=== PATIENT | female | born 1935 | race Caucasian/White ===

== ENCOUNTER 2018-03-11 10:11 | Inpatient (IN) | payer OTHER ==
--- NOTE | 2018-03-11 10:55 | RAD REPORT ---
EXAM DESCRIPTION: CT - Head Brain Wo Cont - 03/11/2018 10:48 am CLINICAL HISTORY: Transient alteration of awareness, possible sepsis, altered mental status COMPARISON: None. TECHNIQUE: Axial 5 mm thick images of the head were obtained without IV contrast. All CT scans are performed using dose optimization technique as appropriate and may include automated exposure control or mA/KV adjustment according to patient size. FINDINGS: No intracranial hemorrhage, mass, edema or shift of mid-line structures. No cortical edema or sulcal effacement. Patient has advanced atrophy and chronic ischemic change. Ventricles are in pr oportion to volume loss. Old infarction changes are present in the deep periventricular white matter of the anterior right frontal lobe and posterior left frontal lobe. Brainstem chronic ischemic change s are present. Atrophy involves the cerebellum as well. Arterial and physiologic calcifications are p resent. Mastoid air cells are clear. Patchy mucosal thickening in the frontal sinus and anterior ethmoid air cells. No acute bony findings. IMPRESSION: No hemorrhage, mass or acute intracranial finding identifiable. Advanced atrophy and chronic ischemic change. Ventricles are in proportion. Chronic ischemic changes can mask nonhemorrhagic acute infarction. MR brain followup can be obtained if there is ongoing concern for acute ischemia.
[2018-03-11 11:00] LABS: Absolute Lymphocytes (CBC) 0.9 K/uL (0.7-4.9); Absolute Neutrophil 10.8 K/uL (1.8-8.0); Basophils % 0.1 % (0-1.3); Hematocrit 46.1 % (36.0-45.0); Lymphocytes % 6.7 % (15.3-44.8); MCH 32.6 pg (27.0-35.0); MCV 99.4 fL (80-100); MPV 10.4 fL (7.6-11.3); Monocytes % 8.2 % (3.3-12.3); RBC Red Blood Cell Count 4.64 M/uL (3.86-4.86)
--- NOTE | 2018-03-11 11:02 | RAD REPORT ---
EXAM DESCRIPTION: RAD - Chest Single View - 03/11/2018 10:54 am CLINICAL HISTORY: Transient alteration of awareness, decreased consciousness, shortness of breath COMPARISON: February 2016 TECHNIQUE: AP portable chest image was obtained and 1042 hours . FINDINGS: Lung volumes are low. Fibrotic lung changes are present not clearly different when adjusti ng for shallow inspiration. No pulmonary edema, failure or volume overload findings. No peripheral co nsolidation or mass. Widening of the right side mediastinum and fullness of the right hilum OR artifa cts of shallow inspiration and rotation. True change to the mediastinum is unlikely. Heart and vascul ature are normal. No measurable pleural effusion and no pneumothorax. No acute bony abnormality seen. No acute aortic findings suspected. IMPRESSION: Chronic interstitial lung disease with no acute cardiopulmonary finding. No significant change from February 2016.
[2018-03-11 11:09] LABS: Protime INR 1.04
[2018-03-11] MEDS ORDERED: NA CHLORIDE 0.9% 1,000 ML ONE ×2 (11:09→11:52)
[2018-03-11 11:20] LABS: Albumin 2.7 g/dL (3.4-5.0); Bilirubin Direct 0.4 mg/dL (0-0.2); Bilirubin Total 0.8 mg/dL (0.2-1.0); Potassium 4.5 mmol/L (3.5-5.1); Troponin (Emerg Dept Use Only) 0.03 ng/mL (0.0-0.045)
[2018-03-11] MEDS ORDERED: NALOXONE 0.4 MG/ML VIAL ONE (11:52)
[2018-03-11] MEDS ORDERED: CEFEPIME 1 GM/100 ML BAG IV ONE (11:52)
--- NOTE | 2018-03-11 11:59 | ER ---
Nurse's Notes [facility] Name: Concepción Georges Age: 82 yrs Sex: Female : 1935 Arrival Date: 03/11/2018 Time: 10:16 Bed 4 Private MD: Devin Machado Diagnosis: Severe sepsis with septic shock Presentation: 03/11 10:43 Presenting complaint: EMS states: Pt responsive to tactile stimuli only, NH staff sg reports pt to be normally aa\T\ox3 but starting sometime yesterday she was aa\T\ox1, not wanting to eat or drink beginning yesterday as well, NH staff reports green sputum in mouth, but unable to assess lung cuenca d/t pt inability to deep breath, EMS reports hypotensive in route with BP's 51/30's, unable to obtain IV access reports FSBG of 190, pt room air saturation of 92 percent and placed to FL at 2 lpm with an increase in o2 saturation to 96%. Transition of care: patient was received from another setting of care (long-term care facility), [facility]. Onset of symptoms was March 10, 2018. Risk Assessment: Do you want to hurt yourself or someone else? Unable to obtain. Initial Sepsis Screen: Does the patient meet any 2 criteria? Altered Mental Status. HR > 90 bpm. Yes Does the patient have a suspected source of infection? Yes: Productive cough/pneumonia Other: per NH staff. Care prior to arrival: Glucose check: 190. 10:43 Acuity: LULY 2 sg 10:43 Method Of Arrival: EMS: [facility] sg Historical: - Allergies: 10:51 Codeine; sg 10:51 Demerol; sg 10:51 Paxil; sg 10:51 Sulfa (Sulfonamide Antibiotics); sg - Home Meds: 11:38 tramadol 50 mg Oral tab 1 tab every 6 hours [Active]; sg 12:53 acetaminophen 325 mg Oral tab 2 tabs every 6 hours [Active]; amlodipine 5 mg tab 1 tab sg once daily [Active]; atorvastatin 20 mg oral tab 1 tab once daily [Active]; cholecalciferol (vitamin D3) 1,000 unit oral tab twice a day [Active]; clopidogrel 75 mg oral tab 1 tab once daily [Active]; Cymbalta 60 mg oral cpDR 1 cap once daily [Active]; Depakote 125 mg Oral TbEC 1 tab 2 times per day [Active]; docusate sodium 100 mg Oral cap 1 cap once daily [Active]; donepezil 23 mg oral tab 1 tab once daily [Active]; Dulcolax (bisacodyl) 5 mg Oral TbEC [Active]; famotidine 20 mg Oral tab 1 tab once daily [Active]; ibuprofen 200 mg Oral cap [Active]; loperamide 2 mg Oral tab twice a day [Active]; meclizine 25 mg Oral tab 1 tab [Active]; melatonin 3 mg Oral tab daily [Active]; memantine 10 mg oral tab 1 tab 2 times per day [Active]; mirtazapine 15 mg Oral tab 1 tab once daily [Active]; Myrbetriq 25 mg oral Tb24 1 tab once daily [Active]; senna 8.6 mg oral tab once daily [Active]; - PMHx: 10:51 Dementia; Depression; Hyperlipidemia; Hypertension; CVA; Ischemic; sg - PSHx: 10:51 Cardiac stent placement; sg - Immunization history:: Adult Immunizations unknown. - Social history:: Smoking status: unknown The patient [facility] in a [facility]. - Ebola Screening: : Unable to complete screening because patient does not understand. Screenin:25 Abuse screen: Denies threats or abuse. Denies injuries from another. Nutritional sg screening: No deficits noted. Tuberculosis screening: No symptoms or risk factors identified. Never had TB. Fall Risk None identified. Assessment: 10:25 General: Appears ill, slender, well groomed, well developed, well nourished, Behavior sg is listless, quiet. Pain: Unable to use pain scale. Patient is disoriented. Does not appear to understand pain scale. pt non verbal at this time, but will make an audible noise with her mouth to tactile stimuli. Neuro: Level of Consciousness is confused, lethargic, unresponsive, Oriented to none Facial symmetry appears normal, Pupils are sluggish, pinpoint. Cardiovascular: Heart tones S1 S2 present Capillary refill is sluggish in bilateral fingers toes. Respiratory: Airway is patent Respiratory effort is even, shallow, Respiratory pattern is tachypnea Breath sounds are diminished in left posterior lower lobe, right posterior middle lobe and right posterior lower lobe. GI: Abdomen is flat, non-distended, Bowel sounds present X 4 quads. : Genitalia appear normal incontinent of urine, a soiled brief is noted upon arrival, pt cleaned and a new brief applied. EENT: No deficits noted. Derm: Skin is fragile, is thin, with poor turgor Skin is dry, Skin is pale, Skin temperature is cold. Musculoskeletal: No deficits noted. 11:14 Reassessment: pt family at bedside at this time, pt remains stoic and non verbal, will sg open eyes when pt family member calls her name but will not speak or interact, will continue to monitor. 12:55 Reassessment: spoke with Mortgage Coordinator documentation consultant, Kendell Gamino per family request who states ss that he will meet family and patient in room 208 for consultation. Vital Signs: 10:30 BP 98 / 67; Pulse 127 MON; Resp 24 S; Temp 98.2(R); Pulse Ox 92% on 2 lpm NC; sg 11:12 BP 105 / 79; Pulse 112; Resp 27 S; Pulse Ox 98% on 2 lpm NC; sg 11:32 Pulse 104; Resp 26 S; Pulse Ox 98% on 2 lpm NC; sg 11:35 BP 123 / 77; sg 12:36 BP 152 / 77; Pulse 98; Resp 21; Pulse Ox 97% on R/A; sg ED Course: 10:16 Patient arrived in ED. ss 10:17 Munir Martinez MD is Attending Physician. gs 10:20 Missed attempt(s): 20 gauge in left antecubital area. Bleeding controlled, band aid sg applied, catheter tip intact. 10:22 Missed attempt(s): 20 gauge in left wrist. Bleeding controlled, band aid applied, sg catheter tip intact. 10:25 First set of blood cultures drawn. Inserted saline lock: 24 gauge in left hand, using dh3 aseptic technique. Blood collected. 10:30 Arm band placed on. sg 10:40 Initial lab(s) drawn, by me, sent to lab. Second set of blood cultures drawn by me. sg Inserted saline lock: 20 gauge in right antecubital area, using aseptic technique. Blood collected. 10:42 Tera Frazier, RN is Primary Nurse. sg 10:47 Triage completed. sg 10:49 Head Brain Wo Cont In Process Unspecified. EDMS 10:55 Chest Single View In Process Unspecified. EDMS 11:07 lactate drawn by me and sent to lab. [facility] 11:40 Devin Machado is Private Physician. 11:58 Cecily Meyer MD is Hospitalizing Provider. 12:00 Notified ED physician of a critical lab result(s). Lactate 6.5. sg 12:36 Rowley cath inserted, using sterile technique, 16 Fr., by wa, balloon inflated, to sg gravity drainage, urine specimen collected. returned cloudy urine. Patient tolerated well. Administered Medications: 11:14 Drug: NS 0.9% 1000 ml Route: IV; Rate: 1 bolus; Site: right antecubital; sg 11:58 Drug: NARcan 0.2 mg Route: IVP; Site: right antecubital; sg 12:20 Follow up: Response: No adverse reaction; No change in condition sg 11:59 Drug: NS 0.9% 1000 ml Route: IV; Rate: 1 bolus; Site: right antecubital; sg 12:00 Drug: Cefepime 1 grams Route: IVPB; Rate: 200 ml/hr; Infused Over: 30 mins; Site: right sg antecubital; 12:30 Follow up: Response: No adverse reaction; IV Status: Completed infusion sg Point of Care Testing: Blood Glucose: 11:12 Blood Glucose: 138 mg/dL; sg Ranges: Outcome: 11:58 Decision to Hospitalize by Provider. gs 13:11 Patient left the ED. lt1 Signatures: Dispatcher [employer] EDMS Tera Frazier RN RN sg Smirch, Shelby, RN RN Carmel Burciaga [facility] Munir Martinez MD MD Cheryl Arthur lt1
--- NOTE | 2018-03-11 11:59 | EDPHYS ---
Physician Documentation [facility] Name: Concepción Georges Age: 82 yrs Sex: Female : 1935 Arrival Date: 03/11/2018 Time: 10:16 Bed 4 Private MD: Devin Machado ED Physician Munir Martinze HPI: 03/11 11:52 This 82 yrs old Female presents to ER via EMS with complaints of Altered gs Mental Status. 11:52 The patient presents with decreased mental status. Onset: The symptoms/episode gs began/occurred today. Possible causes: CVA or TIA, sepsis. Associated signs and symptoms: Pertinent negatives:. Unable to obtain HPI due to baseline dementia, patient distress. Historical: - Allergies: 10:51 Codeine; sg 10:51 Demerol; sg 10:51 Paxil; sg 10:51 Sulfa (Sulfonamide Antibiotics); sg - Home Meds: 11:38 tramadol 50 mg Oral tab 1 tab every 6 hours [Active]; sg 12:53 acetaminophen 325 mg Oral tab 2 tabs every 6 hours [Active]; amlodipine 5 mg tab 1 tab sg once daily [Active]; atorvastatin 20 mg oral tab 1 tab once daily [Active]; cholecalciferol (vitamin D3) 1,000 unit oral tab twice a day [Active]; clopidogrel 75 mg oral tab 1 tab once daily [Active]; Cymbalta 60 mg oral cpDR 1 cap once daily [Active]; Depakote 125 mg Oral TbEC 1 tab 2 times per day [Active]; docusate sodium 100 mg Oral cap 1 cap once daily [Active]; donepezil 23 mg oral tab 1 tab once daily [Active]; Dulcolax (bisacodyl) 5 mg Oral TbEC [Active]; famotidine 20 mg Oral tab 1 tab once daily [Active]; ibuprofen 200 mg Oral cap [Active]; loperamide 2 mg Oral tab twice a day [Active]; meclizine 25 mg Oral tab 1 tab [Active]; melatonin 3 mg Oral tab daily [Active]; memantine 10 mg oral tab 1 tab 2 times per day [Active]; mirtazapine 15 mg Oral tab 1 tab once daily [Active]; Myrbetriq 25 mg oral Tb24 1 tab once daily [Active]; senna 8.6 mg oral tab once daily [Active]; - PMHx: 10:51 Dementia; Depression; Hyperlipidemia; Hypertension; CVA; Ischemic; sg - PSHx: 10:51 Cardiac stent placement; sg - Immunization history:: Adult Immunizations unknown. - Social history:: Smoking status: unknown The patient lives in a [facility]. - Ebola Screening: : Unable to complete screening because patient does not understand. ROS: 11:52 All other systems are negative. gs Exam: 11:52 Head/Face: Normocephalic, atraumatic. Eyes: Pupils equal round and reactive to light, gs extra-ocular motions intact. Lids and lashes normal. Conjunctiva and sclera are non-icteric and not injected. Cornea within normal limits. Periorbital areas with no swelling, redness, or edema. ENT: Nares patent. No nasal discharge, no septal abnormalities noted. Tympanic membranes are normal and external auditory canals are clear. Oropharynx with no redness, swelling, or masses, exudates, or evidence of obstruction, uvula midline. Mucous membranes moist. Neck: Trachea midline, no thyromegaly or masses palpated, and no cervical lymphadenopathy. Supple, full range of motion without nuchal rigidity, or vertebral point tenderness. No Meningismus. Chest/axilla: Normal chest wall appearance and motion. Nontender with no deformity. No lesions are appreciated. 11:52 Abdomen/GI: Soft, non-tender, with normal bowel sounds. No distension or tympany. No guarding or rebound. No evidence of tenderness throughout. Back: No spinal tenderness. No costovertebral tenderness. Full range of motion. Skin: Warm, dry with normal turgor. Normal color with no rashes, no lesions, and no evidence of cellulitis. MS/ Extremity: Pulses equal, no cyanosis. Neurovascular intact. Full, normal range of motion. Neuro: Awake and alert, GCS 15, oriented to person, place, time, and situation. Cranial nerves II-XII grossly intact. Motor strength 5/5 in all extremities. Sensory grossly intact. Cerebellar exam normal. Normal gait. 11:52 Constitutional: The patient appears awake. 11:52 Cardiovascular: Rate: tachycardic, Rhythm: regular, Pulses: thready, Edema: is not appreciated. 11:52 ECG was reviewed by the Attending Physician. 11:52 Respiratory: the patient does not display signs of respiratory distress, Respirations: tachypnea, Breath sounds: are clear throughout. Vital Signs: 10:30 BP 98 / 67; Pulse 127 MON; Resp 24 S; Temp 98.2(R); Pulse Ox 92% on 2 lpm NC; sg 11:12 BP 105 / 79; Pulse 112; Resp 27 S; Pulse Ox 98% on 2 lpm NC; sg 11:32 Pulse 104; Resp 26 S; Pulse Ox 98% on 2 lpm NC; sg 11:35 BP 123 / 77; sg 12:36 BP 152 / 77; Pulse 98; Resp 21; Pulse Ox 97% on R/A; sg MDM: 10:22 Patient medically screened. gs 11:52 Differential Diagnosis: CVA, electrolyte abnormality, pneumonia, sepsis. Data reviewed: vital signs, nurses notes. Counseling: I had a detailed discussion with the patient and/or guardian regarding: the historical points, exam findings, and any diagnostic results supporting the discharge/admit diagnosis, lab results, radiology results, the need for further work-up and treatment in the hospital, family requests dnr for pt. Response to treatment: the patient's symptoms have markedly improved after treatment, and as a result, I will admit patient. 03/11 10:23 Order name: Basic Metabolic Panel 03/11 10:23 Order name: Blood Culture Adult (2) 03/11 10:23 Order name: CBC with Diff 03/11 10:23 Order name: CPK 03/11 10:23 Order name: Lactate 03/11 10:23 Order name: LFT's 03/11 10:23 Order name: Lipase 03/11 10:23 Order name: Procalcitonin 03/11 10:23 Order name: Protime (+inr) 03/11 10:23 Order name: Troponin (emerg Dept Use Only) 03/11 10:23 Order name: Urine Microscopic Only 03/11 10:48 Order name: Basic Metabolic Panel; Complete Time: 11:29 EDMS 03/11 10:48 Order name: CBC with Automated Diff; Complete Time: 11:29 EDMS 03/11 10:48 Order name: Creatine Phosphokinase; Complete Time: 11:29 EDMS 03/11 10:27 Order name: Chest Single View; Complete Time: 11:29 EDMS 03/11 10:28 Order name: Head Brain Wo Cont; Complete Time: 11:29 EDMS 03/11 10:48 Order name: Lactate; Complete Time: 11:59 EDMS 12 10:48 Order name: Lipase; Complete Time: 11:29 EDMS 03/11 10:48 Order name: Liver (Hepatic) Function; Complete Time: 11:29 EDMS 12 10:48 Order name: Procalcitonin; Complete Time: 11:46 EDMS 03/11 10:48 Order name: Protime (+INR); Complete Time: 11:29 EDMS 03/11 10:48 Order name: Troponin (Emerg Dept Use Only); Complete Time: 11:29 EDMS 03/11 10:48 Order name: Urine Microscopic Only EDKY 03/11 10:48 Order name: Blood Culture EDKY 03/11 11:10 Order name: Glucose, Ancillary Testing; Complete Time: 11:29 EDMS 03/11 12:38 Order name: Urine Dipstick--Ancillary (enter results) 03/11 10:23 Order name: Misc. Order: cadence elenaer; Complete Time: 10:58 gs 03/11 10:23 Order name: Accucheck; Complete Time: 10:58 gs 03/11 10:23 Order name: Cardiac monitoring; Complete Time: 10:58 gs 03/11 10:23 Order name: EKG - Nurse/Tech; Complete Time: 10:58 gs 03/11 10:23 Order name: IV Saline Lock - Large Bore; Complete Time: 10:57 gs 03/11 10:23 Order name: Labs collected and sent; Complete Time: 10:58 gs 03/11 10:23 Order name: O2 Per Protocol; Complete Time: 10:57 gs 03/11 10:23 Order name: O2 Sat Monitoring; Complete Time: 10:58 gs 03/11 10:23 Order name: Urine Dipstick-Ancillary (obtain specimen); Complete Time: 12:55 gs EC:52 Rate is 116 beats/min. Rhythm is regular. VT interval is normal. QRS interval is gs prolonged. Clinical impression: Abnormal EKG without significant change. Interpreted by me. Administered Medications: 11:14 Drug: NS 0.9% 1000 ml Route: IV; Rate: 1 bolus; Site: right antecubital; sg 11:58 Drug: NARcan 0.2 mg Route: IVP; Site: right antecubital; sg 12:20 Follow up: Response: No adverse reaction; No change in condition sg 11:59 Drug: NS 0.9% 1000 ml Route: IV; Rate: 1 bolus; Site: right antecubital; sg 12:00 Drug: Cefepime 1 grams Route: IVPB; Rate: 200 ml/hr; Infused Over: 30 mins; Site: right sg antecubital; 12:30 Follow up: Response: No adverse reaction; IV Status: Completed infusion sg Point of Care Testing: Blood Glucose: 11:12 Blood Glucose: 138 mg/dL; sg Ranges: Critical Glucose Levels:Adult <50 mg/dl or >400 mg/dl <40 mg/dl or >180 mg/dl Disposition: 11:52 Critical Care:. Disposition: 03/11/18 11:58 Hospitalization ordered by Cecily Meyer for Inpatient Admission. Preliminary diagnosis is Severe sepsis with septic shock. - Bed requested for Telemetry/MedSurg (Inpatient). - Status is Inpatient Admission. lt1 - Condition is Stable. - Problem is new. - Symptoms have improved. UTI on Admission? Yes Critical care time excluding procedures: 11:52 Critical care time: Bedside Care: 10 minutes, Consultation: 10 minutes, Family gs Intervention: 15 minutes. Total time: 35 minutes Signatures: Dispatcher [employer] EDTera Brower RN RN sg Munir Martinez MD MD Penny Martinez Leah lt Corrections: (The following items were deleted from the chart) 11:34 11:24 Chest Single View+RAD.RAD.BRZ ordered. EDKY EDMS 11:49 11:24 Head Brain Wo Cont+CT.RAD.BRZ ordered. EDKY EDMS 12:37 11:58 Hospitalization Ordered by Cecily Meyer MD for Inpatient Admission. Preliminary eb diagnosis is Severe sepsis with septic shock. Bed requested for Telemetry/MedSurg (Inpatient). Status is Inpatient Admission. Condition is Stable. Problem is new. Symptoms have improved. UTI on Admission? Yes. 13:11 12:37 03/11/2018 11:58 Hospitalization Ordered by Cecily Meyer MD for Inpatient lt1 Admission. Preliminary diagnosis is Severe sepsis with septic shock. Bed requested for Telemetry/MedSurg (Inpatient). Status is Inpatient Admission. Condition is Stable. Problem is new. Symptoms have improved. UTI on Admission? Yes. eb
[2018-03-11 13:12] LABS: Urine Blood 3+ (NEG); Urine Glucose NEGATIVE (NEG); Urine Protein 3+ (NEG); Urine pH 5.5 (5.0-7.0)
[2018-03-11] MEDS ORDERED: CEFEPIME 2 GM VIAL IV SCH (13:22)
[2018-03-11] MEDS ORDERED: ACETAMINOPHEN 325 MG TABLET PO PRN (13:22)
[2018-03-11] MEDS ORDERED: ACETAMINOPHEN 325 MG/SUPP PR PRN (13:22)
[2018-03-11] MEDS ORDERED: VANCOMYCIN/NS 1 gm 1 GM/250 ML BAG IVPB SCH (13:22)
[2018-03-11] MEDS ORDERED: SODIUM CHLORIDE 0.9% 10ML INJ IV PRN (13:22)
[2018-03-11] MEDS ORDERED: ONDANSETRON 4 MG/2 ML VIAL IV PRN (13:22)
[2018-03-11 13:26] LABS: Urine Bacteria 20-50 /HPF (<20); Urine Culture Reflex Order NOT NEEDED; Urine Mucus HEAVY /HPF (NONE SEEN); Urine RBC >50 /HPF (NONE SEEN)
[2018-03-11 14:23] VITALS: BMI 21.6
[2018-03-11] MEDS ORDERED: VANCOMYCIN 1.25 GM in NA CHLORIDE 0.9% 250 ML IVPB ONE (15:00)
[2018-03-11] MEDS: ENOXAPARIN 30 MG/0.3 ML SQ SCH (15:19)
[2018-03-11] MEDS: CEFEPIME/SWI 2gm 2 GM/20 ML SYR IVP SCH (15:19)
[2018-03-11] MEDS ORDERED: NA CHLORIDE 0.9% 1,000 ML IV ONE (18:30)
[2018-03-11] MEDS: NA CHLORIDE 0.9% 1,000 ML IV SCH (20:11)
[2018-03-11 21:26] LABS: Urine Amorphous Sediment 1+ /HPF (NONE SEEN); Urine Bacteria <20 /HPF (<20); Urine Culture Reflex Order REFLEXED; Urine RBC TNTC /HPF (NONE SEEN)
--- NOTE | 2018-03-12 01:48 | HP ---
Date of Admission: 03/11/2018 Code Status: Do not resuscitate. Family members present at the bedside. The patient is demented, no living will. Chief Complaint: Confusion, generalized weakness. History Of Present Illness: The patient is an 82-year-old female with past medical history of dementia, hypertension, depression, who is a resident of residential, comes in for generalized weakness as well as decreased mental status more than usual. The patient was evaluated in the ER. Her symptoms are constant, moderate, progressively worsening. Upon arrival, her vital signs showed hypotension, blood pressure was 98/67, pulse was 127. She was tachypneic. The patient was given 2 L IV fluid bolus with normal saline. Workup showed elevated white count of 12.7. Her lactate was high at 6.5. Procalcitonin was elevated. UA was positive. The patient was given IV cefepime and referred for admission for sepsis secondary to UTI. The patient was seen in the ER, she was asleep, but arousable. She did receive some Narcan as she is on tramadol at the nursing facility. She did perk up slightly. Her blood pressure improved with IV fluids. Past Medical History: Hypertension, dementia, history of previous UTIs with MRSA and Enterococcus infections, depression. Past Surgical History: Broken left arm, hysterectomy, cardiac cath with stent, surgery on the left foot. Allergies: TO CODEINE, SULFA, AND PAROXETINE. Social History: The patient is resident of residential. Never smoked. No alcohol or illicit drug use. Has good family support. Family History: Noncontributory in this 82-year-old female. Review of Systems: Negative except as above, somewhat limited due to the patient's mental status. Physical Examination: Vital Signs: Blood pressure 98/67, pulse 127, respirations 24, temperature 98.2 , O2 92% on 2 L. Initially, the patient was somewhat hypothermic with temperature 96. General: Asleep, but arousable, some mild distress, ill-appearing elderly female, confused, frail, cachectic appearing. HEENT: Normocephalic, atraumatic. PERRLA. EOMI. Dry mucous membranes. Oropharynx is clear. Poor dentition. Conjunctivae anicteric. Neck: Supple. No JVD. Trachea midline. CV: S1, S2. Peripheral pulses present. Regular rate and rhythm. Respiratory: Moving air well bilaterally. No wheezing or stridor. The patient is slightly tachypneic. Gastrointestinal: Abdomen is soft, nontender, nondistended. Positive bowel sounds. No guarding or rigidity. Extremities: No clubbing, cyanosis, or edema. No calf tenderness. Neuro: Cranial nerves 2 through 12 intact grossly. The patient not very cooperative with complete examination, however, no gross abnormal findings seen. The patient moves all 4 extremities. Speech unable to be evaluated due to her mental condition. Skin: No rashes. Normal skin turgor. Psych: Deferred. Laboratory Data: UA negative nitrite, negative leukocyte esterase, greater than 50 rbc's, 10 to 20 wbc's, 20 to 50 squamous epithelial cells, 20 to 50 bacteria, 3+ protein. Sodium 146, potassium 4.5, chloride 107, CO2 25, BUN 102 , creatinine 2.9, glucose 160. Lactate 6.5, repeat lactate level is 1.7. Calcium 9.6, albumin 2.7. Procalcitonin 0.98. INR 1.04. WBC 12.7, H and H 15.1 and 46.1, neutrophils 85%. CT scan of the head personally reviewed, shows no hemorrhage, mass, or acute intracranial finding identifiable, advanced atrophy and chronic ischemic change, ventricles are in proportion. Chest x-ray personally reviewed shows chronic interstitial lung disease with no acute cardiopulmonary finding. Assessment: An 82-year-old female with, 1. Sepsis. The patient is hypothermic, hypotensive, tachycardic. WBC elevated at 12, lactate at 6.5, procalcitonin elevated. The patient did respond to fluid resuscitation with 2 L of normal saline. Blood pressure is improved. We will continue to monitor. Blood cultures have been obtained. We will start on broad spectrum IV antibiotics likely secondary to urinary tract infection. 2. Urinary tract infection. 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 We will continue on vanc and cefepime. We will obtain urine culture. 3. Acute metabolic encephalopathy may be related to sepsis versus hypernatremia or possibly due to narcotic side effect. The patient did improve with some Narcan. We will avoid narcotics for now, use Narcan p.r.n. 4. Acute kidney injury. Creatinine is elevated. Baseline creatinine is normal from December of this year. 5. Moderate protein-calorie malnutrition. Albumin is 2.7. 6. History of hypertension, currently hypotensive. 7. Major depressive disorder in remission. 8. 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 9. Gastrointestinal and deep venous thrombosis prophylaxis addressed, Lovenox renally dosed. Plan: Admit the patient to Med-Surg, place as inpatient. KRYS Voice ID: [id number]
[2018-03-12] MEDS: NA CHLORIDE 0.9% 1,000 ML IV SCH (05:26)
[2018-03-12 06:58] LABS: Absolute Lymphocytes (CBC) 0.9 K/uL (0.7-4.9); Absolute Monocytes 1.4 K/uL (0.1-1.3); Absolute Neutrophil 8.5 K/uL (1.8-8.0); Basophils % 0.1 % (0-1.3); Hematocrit 38.5 % (36.0-45.0); Lymphocytes % 8.4 % (15.3-44.8); MCH 32.8 pg (27.0-35.0); MCV 98.3 fL (80-100); MPV 10.2 fL (7.6-11.3); Monocytes % 12.9 % (3.3-12.3); RBC Red Blood Cell Count 3.92 M/uL (3.86-4.86)
[2018-03-12 07:37] LABS: Phosphorus 3.7 mg/dL (2.5-4.9); Potassium 3.9 mmol/L (3.5-5.1)
[2018-03-12] MEDS ORDERED: PANTOPRAZOLE 40 MG INJ IVP SCH (09:00)
[2018-03-12] MEDS ORDERED: IBUPROFEN 200 MG TAB PO PRN (10:16)
[2018-03-12] MEDS ORDERED: BISACODYL E.C. 5 MG TAB PO PRN (10:16)
[2018-03-12] MEDS: ENOXAPARIN 30 MG/0.3 ML SQ SCH (10:50)
[2018-03-12] MEDS: CEFEPIME/SWI 2gm 2 GM/20 ML SYR IVP SCH (10:51)
[2018-03-12] MEDS: POLYETHYL GLY 3350 17 GM/DOSE PO SCH (11:00)
[2018-03-12] MEDS ORDERED: LOPERAMIDE HCL 2 MG CAPSULE PO SCH (11:00)
[2018-03-12] MEDS: DULOXETINE 30 MG CAP PO SCH (11:01)
[2018-03-12] MEDS: LACTOBACILLUS/ACIDOPHILUS TAB PO SCH (11:02)
[2018-03-12] MEDS: CLOPIDOGREL 75 MG TABLET PO SCH (11:02)
[2018-03-12] MEDS: FAMOTIDINE 20 MG TAB PO SCH (11:02)
[2018-03-12] MEDS: MEMANTINE HCL 10 MG TABLET PO SCH ×2 (11:02→22:07)
[2018-03-12] MEDS: DOCUSATE NA/SENNA CONC 1 TAB PO SCH ×2 (11:02→21:56)
[2018-03-12] MEDS: D5 0.45 NS 1,000 ML IV SCH ×2 (11:03→21:55)
--- NOTE | 2018-03-12 11:33 | EKG ---
Test Date: 2018-03-11 Test Time: 11:04:40 [facility] Technician: KATHLEEN MEASUREMENT RESULTS: Intervals: Rate: 116 UT: 144 QRSD: 130 QT: 352 QTc: 489 [place]: P: 59 UT: 144 QRS: -16 T: 130 INTERPRETIVE STATEMENTS: Sinus tachycardia Nonspecific intraventricular block Cannot rule out Septal infarct, age undetermined ST and T wave abnormality, consider lateral ischemia Abnormal ECG Compared to ECG 03/20/2016 05:29:33 Sinus rhythm no longer present First degree AV block no longer present Left bundle-branch block no longer present Electronically Signed On 03-12-18 11:33:02 GENERAL CARGO CLERK by Justin Wood
[2018-03-12] MEDS: DIVALPROEX NA 125 MG CAP PO SCH ×2 (12:09→21:56)
[2018-03-12] MEDS: DIVALPROEX ER 250 MG TAB PO SCH ×2 (12:09→21:56)
--- NOTE | 2018-03-12 18:08 | PN ---
Date of Progress Note: 03/12/2018 Patient was seen and examined. Chart reviewed and case discussed with RN. Daughter at the bedside. Treatment plan explained. All questions answered. The patient is somewhat more awake and alert toda y, responding and following commands, however, still not back to baseline according to the daughter. Medications: List reviewed. Physical Examination: Vital Signs: Temperature 97.9, heart rate 83, blood pressure 149/73, respirations 18, O2 96% on room air. General: Awake, alert, confused, elderly female, ill-appearing, cachectic, frail. CV: S1, S2. Regular rate and rhythm. Peripheral pulses weak bilaterally. Respiratory: Diminished breath sounds overall, however, no wheezing or stridor. No use of accessory muscles. Gastrointestinal: Abdomen is soft, nontender, nondistended. Positive bowel sounds. No guarding or r igidity. Extremities: No clubbing, cyanosis, or edema. Skin: Lower extremities cool to the touch. No rashes . Capillary refill is less than 2 seconds. Neuro: Cranial nerves 2-12 intact grossly. No focal neurological deficit. Speech is incomprehensibl e. The patient moans, not really talking. Does follow commands. Moves all 4 extremities. Laboratory Data: Sodium 153, potassium 3.9, chloride 122, CO2 24, BUN 95, creatinine 1.4, glucose 12 1, lactate 1.7, calcium 8.1, phosphorus 3.7, magnesium 3. WBC 10.8, H and H 12.8, 38.5, platelets 25 2. Assessment And Plan: An 82-year-old female with: 1.Sepsis. The patient was hypothermic, hypotensive, tachycardic with elevated lactate and WBC count . Source of infection is UTI. Cultures so far negative to date. We will continue on IV antibiotics . 2.Urinary tract infection, acute cystitis without hematuria. 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 We will continue vanc and cefepime. Follow up on culture results. 3.Acute metabolic encephalopathy, likely related to sepsis, hypernatremia, and urinary tract infecti on and even narcotic side effect. Narcotics have been withheld. The patient is starting to wake up and follow commands, however, still not back to her baseline. We will continue to monitor. 4.Acute kidney injury, improving. Creatinine is improved today. We will continue to follow up on c reatinine level, likely prerenal azotemia. 5.Hypernatremia. We will adjust IV fluids and switch to D5 half NS. We will continue to monitor so dium level. Slow correction of sodium. 6.Moderate protein-calorie malnutrition. Albumin is 2.7. We will reassess the patient's swallowing function. If passes bedside swallow evaluation, we will start on modified diet. Will need speech th erapy evaluation. 7.Essential hypertension. Was hypotensive earlier. However, now blood pressure is normalized. 8.Major depressive disorder, in remission. 9.Alzheimer's dementia, early onset without behavioral disturbance. 10.Gastrointestinal and deep venous thrombosis prophylaxis addressed with PPI and Lovenox renally do sed. Plan: Continue to monitor closely. Continue antibiotics and follow up on cultures. IV fluids have been adjusted. We will repeat sodium level this evening. /BECCA Voice ID: [id number] Report ID: [id number]
[2018-03-12] MEDS ORDERED: DIVALPROEX ER 250 MG TAB PO SCH (21:00)
[2018-03-12] MEDS ORDERED: HOME MED 1 EA UNK (Donepezil Hcl [Aricept] 10 MG) PO SCH (21:00)
[2018-03-12] MEDS: MIRTAZAPINE 15 MG TAB PO SCH (21:56)
[2018-03-12] MEDS: ATORVASTATIN 20 MG TAB PO SCH (21:56)
[2018-03-12] MEDS: DONEPEZIL HCL 5 MG TAB PO SCH (21:56)
[2018-03-12] MEDS: MELATONIN 3 MG TABLET PO SCH (21:56)
[2018-03-13] MEDS ORDERED: HYDRALAZINE HCL 20 MG/ML VIAL IV PRN (00:32)
[2018-03-13] MEDS: D5 0.45 NS 1,000 ML IV SCH ×2 (06:00→09:36)
[2018-03-13 06:32] LABS: Absolute Lymphocytes (CBC) 1.3 K/uL (0.7-4.9); Absolute Monocytes 1.7 K/uL (0.1-1.3); Absolute Neutrophil 8.4 K/uL (1.8-8.0); Basophils % 0.1 % (0-1.3); Hematocrit 37.8 % (36.0-45.0); Lymphocytes % 11.6 % (15.3-44.8); MCH 33.1 pg (27.0-35.0); MCV 98.7 fL (80-100); Monocytes % 14.7 % (3.3-12.3); RBC Red Blood Cell Count 3.83 M/uL (3.86-4.86)
[2018-03-13 06:43] LABS: Magnesium 2.6 mg/dL (1.8-2.4); Phosphorus 1.7 mg/dL (2.5-4.9); Potassium 3.7 mmol/L (3.5-5.1)
[2018-03-13] MEDS ORDERED: HOME MED 1 EA UNK (Lactobacillus Acidophilus [Acidophilus] 1 CAP) PO SCH (09:00)
[2018-03-13] MEDS ORDERED: CLOPIDOGREL 75 MG TABLET PO SCH (09:00)
[2018-03-13] MEDS: LACTOBACILLUS/ACIDOPHILUS TAB PO SCH (09:00)
[2018-03-13] MEDS ORDERED: DULOXETINE 30 MG CAP PO SCH (09:00)
[2018-03-13] MEDS: DOCUSATE NA/SENNA CONC 1 TAB PO SCH (09:00)
[2018-03-13] MEDS: DIVALPROEX NA 125 MG CAP PO SCH (09:00)
[2018-03-13] MEDS ORDERED: HOME MED 1 EA UNK (Mirabegron [Myrbetriq] 50 MG) PO SCH (09:00)
[2018-03-13] MEDS: FAMOTIDINE 20 MG TAB PO SCH (09:00)
[2018-03-13] MEDS: MEMANTINE HCL 10 MG TABLET PO SCH ×2 (09:00→20:25)
[2018-03-13] MEDS: DULOXETINE 30 MG CAP PO SCH (09:00)
[2018-03-13] MEDS: POLYETHYL GLY 3350 17 GM/DOSE PO SCH (09:00)
[2018-03-13] MEDS ORDERED: DULOXETINE HCL 90 MG PO SCH (09:00)
[2018-03-13] MEDS: CLOPIDOGREL 75 MG TABLET PO SCH (09:00)
[2018-03-13] MEDS: DIVALPROEX ER 250 MG TAB PO SCH (09:00)
[2018-03-13] MEDS: CEFEPIME/SWI 2gm 2 GM/20 ML SYR IVP SCH (09:36)
[2018-03-13] MEDS: ENOXAPARIN 30 MG/0.3 ML SQ SCH (09:43)
[2018-03-13] MEDS ORDERED: POTASSIUM PHOS IN 0.9 % NACL 15 MMOL/250 ML BAG IV ONE (12:29)
--- NOTE | 2018-03-13 12:37 | RAD REPORT ---
EXAM DESCRIPTION: RAD - Barium Swallow Modified - 03/13/2018 12:06 pm CLINICAL HISTORY: Difficulty swallowing COMPARISON: None. TECHNIQUE: The patient was given liquid, semi-solid and solid forms of barium. Lateral view fluorosc opic imaging was performed in conjunction with speech pathology service. FINDINGS: Fluoro time was 5 minutes 34 seconds. There were 29 cine loop acquisitions obtained. Laryngeal penetration: Cleared with thin liquid by straw and one by cup sip. Pharyngeal residue: Vallecular and pyriform residue with moderate to severe pooling with all consiste ncies, moderate residue in Valleculae with puree, nectar, and honey. Severe oral holding, tactile stimulation is ineffective. Delayed swallow. Liquid wash required to c lear puree. IMPRESSION: Modified barium swallow findings as detailed above and on speech pathology report.
[2018-03-13] MEDS: D5W 1,000 ML IV SCH ×2 (12:41→20:26)
[2018-03-13] MEDS ORDERED: VANCOMYCIN 750 MG in NA CHLORIDE 0.9% 150 ML IVPB SCH (15:00)
--- NOTE | 2018-03-13 17:22 | PN ---
Date of Progress Note: 03/13/2018 Subjective: Patient seen and examined. Chart reviewed and case discussed with RN and the patient's daughter on the phone. The patient is much more awake and alert, following commands, was placed on a modified diet due to her dysphagia going for modified barium swallow study today. Medications: List reviewed. Physical Examination: Vital Signs: Temperature 97.3, heart rate 96, blood pressure 110/69, respirations 19, O2 93% on 1.5 L via nasal cannula. General: Awake, alert, oriented x1, some mild distress, ill-appearing elderly female. CV: S1, S2. Regular rate and rhythm. Peripheral pulses present. Respiratory: Moving air well. No wheezing or stridor. Gastrointestinal: Abdomen is soft, nontender, nondistended. Positive bowel sounds. Extremities: No clubbing, cyanosis, or edema. Neurologic: Nonfocal. Laboratory Data: Sodium 152, potassium 3.7, chloride 122, CO2 24, BUN 64, creatinine 1.2, glucose 173, calcium 8.4, phosphorus 1.7, magnesium 2.6. WBC 11.4, H and H 12.7/37.8, platelets 280, neutrophils 73%. Blood cultures, no growth. Urine culture also did not show any growth. Assessment And Plan: An 82-year-old female with: 1. Severe sepsis secondary to urinary tract infection, improving. Continue IV antibiotics. We will discontinue vancomycin. 2. Urinary tract infection, acute cystitis without hematuria. The patient has history of resistant infections; however, cultures show no growth to date. We will stop vanc. 3. Acute metabolic encephalopathy related to sepsis, hypernatremia, and urinary tract infection, as well as narcotic side effects. The patient's mental status is improving, however, not quite back to baseline. We will continue to monitor. 4. Acute kidney injury, improved. Creatinine has normalized. We will adjust IV fluids. 5. Hypernatremia. We will switch IV fluids to D5W as sodium is not improved. We will continue to monitor closely. 6. Moderate protein-calorie malnutrition. Albumin is 2.7. 7. Hypophosphatemia. We will replace and monitor. 8. Hypermagnesemia. We will continue to monitor. 9. Major depressive disorder, in remission. 10. Alzheimer'S dementia, early onset without behavioral disturbance. 11. Gastrointestinal and deep venous thrombosis prophylaxis with PPI and Lovenox. 12. Hyperchloridemia Plan: Monitor sodium levels. Discharge planning. /BECCA Voice ID: [id number] Report ID: [id number] MTDD
--- NOTE | 2018-03-13 17:45 | RAD REPORT ---
EXAM DESCRIPTION: RAD - Chest Single View - 03/13/2018 3:48 pm CLINICAL HISTORY: NG tube placement COMPARISON: March 11 chest film TECHNIQUE: AP portable chest image was obtained 1536 hours . FINDINGS: Supine examination was performed centered on the diaphragm to assess NG tube placement. Tu be is in good position with the tip and side port of the tubing within the lumen of the stomach. Cont rast is present in the nondilated stomach from earlier modified barium swallow. Multiple dilated small bowel loops are present. No recent abdominal imaging is seen. Correlation is n eeded with any clinical findings for small bowel obstruction. No free air or pneumatosis. IMPRESSION: Multiple dilated small bowel loops with no recent imaging of the abdomen. Findings are s uspicious for small bowel obstruction and correlation is needed with clinical findings. No free air or pneumatosis. NG tube in good position within the nondilated stomach.
[2018-03-13] MEDS ORDERED: JEVITY 1.2 CAL LIQUID 1,000 ML BOT FT SCH ×3 (18:00→20:13)
[2018-03-13] MEDS: ATORVASTATIN 20 MG TAB PO SCH (20:25)
[2018-03-13] MEDS: MELATONIN 3 MG TABLET PO SCH (20:25)
[2018-03-13] MEDS: MIRTAZAPINE 15 MG TAB PO SCH (20:25)
[2018-03-13] MEDS: DONEPEZIL HCL 5 MG TAB PO SCH (20:25)
[2018-03-14] MEDS: D5W 1,000 ML IV SCH (06:09)
[2018-03-14 06:19] LABS: Absolute Monocytes 0.8 K/uL (0.1-1.3); Absolute Neutrophil 6.2 K/uL (1.8-8.0); Basophils % 0.2 % (0-1.3); Eosinophils % 0.5 % (0-4.4); Hematocrit 49.9 % (36.0-45.0); Lymphocytes % 12.7 % (15.3-44.8); MCH 32.6 pg (27.0-35.0); MCV 98.5 fL (80-100); MPV 10.3 fL (7.6-11.3); Monocytes % 9.8 % (3.3-12.3); RBC Red Blood Cell Count 5.07 M/uL (3.86-4.86)
[2018-03-14 06:24] LABS: Magnesium 2.3 mg/dL (1.8-2.4); Phosphorus 2.8 mg/dL (2.5-4.9); Potassium 4.1 mmol/L (3.5-5.1)
[2018-03-14] MEDS: DULOXETINE 30 MG CAP PO SCH ×2 (09:00→10:12)
[2018-03-14] MEDS: POLYETHYL GLY 3350 17 GM/DOSE PO SCH (10:12)
[2018-03-14] MEDS: LACTOBACILLUS/ACIDOPHILUS TAB PO SCH (10:12)
[2018-03-14] MEDS: ENOXAPARIN 30 MG/0.3 ML SQ SCH (10:12)
[2018-03-14] MEDS: MEMANTINE HCL 10 MG TABLET PO SCH ×2 (10:13→21:02)
[2018-03-14] MEDS: CEFEPIME/SWI 2gm 2 GM/20 ML SYR IVP SCH (10:13)
[2018-03-14] MEDS: CLOPIDOGREL 75 MG TABLET PO SCH (10:13)
[2018-03-14] MEDS: FAMOTIDINE 20 MG TAB PO SCH (10:14)
--- NOTE | 2018-03-14 11:40 | RAD REPORT ---
EXAM DESCRIPTION: RAD - Abdomen 1 View (KUB) - 03/14/2018 11:21 am CLINICAL HISTORY: bowel obstruction Pain COMPARISON: Barium Swallow Modified dated 03/13/2018; Chest Single View dated 03/13/2018 FINDINGS: Significant dilated small bowel loops are seen throughout the abdomen compatible with a me chanical small-bowel obstruction. No finding to indicate pneumoperitoneum. No pneumatosis coli seen. Enteric tube is in the stomach with contrast noted in the stomach. No suspicious calcifications. IMPRESSION: Moderately severe mechanical small bowel obstruction.
--- NOTE | 2018-03-14 13:28 | P.PN ---
Subjective Date of Service: 03/14/18 Patient seen and examined at bedside. Daughter at bedside. Chart reviewed and case discussed with nursing staff. Patient much more awake and alert this morning, complaining of lower back pain and lower abdominal pain. She has NG tube going with feeds at this time. No other complaints this morning Review of Systems As noted Physical Examination - Vital Signs Temperature: 97.8 F Blood Pressure: 118/73 Pulse: 93 Respirations: 21 Pulse Ox (%): 94 - Physical Exam General: Cachectic, Mild distress, Other (Elderly female, ill appearing) HEENT: Mucous membr. moist/pink Neck: Supple, JVD not distended Respiratory: Clear to auscultation bilaterally, Normal air movement Cardiovascular: No edema, Normal pulses, Regular rate/rhythm, Normal S1 S2 Gastrointestinal: Non-distended, Tenderness (Noted on right and left lower, patient winces on palpation) Musculoskeletal: No clubbing, No swelling Integumentary: No breakdown Assessment And Plan - Plan This is an 82-year-old female with: Mechanical small bowel obstruction Noted on abdominal x-ray, will discontinue tube feeds, keep NPO and turn NG tube on suction. We will consult general surgery. Severe sepsis secondary to urinary tract infection, improving. Continue IV antibiotics. Vancomycin discontinued Urinary tract infection, acute cystitis without hematuria. The patient has history of resistant infections; however, cultures show no growth to date. We will stop vanc. Acute metabolic encephalopathy related to sepsis, hypernatremia, and urinary tract infection, as well as narcotic side effects. The patient's mental status is improving, however, not quite back to baseline. We will continue to monitor. Acute kidney injury, resolved. Creatinine has normalized. Hypernatremia. Improved Continue D5W as sodium is not improved. We will continue to monitor closely. Moderate protein-calorie malnutrition. Albumin is 2.7. Hypophosphatemia. Resolved Hypermagnesemia. Resolved Major depressive disorder, in remission. Alzheimer's dementia, early onset without behavioral disturbance. DVT prophylaxis: Lovenox GI prophylaxis: Pepcid Diet: NPO Disposition: Pending symptomatic improvement. Keep NPO, NG tube and suction. The patient is a resident of [facility], will return there upon discharge, once stable Discharge Plan: Correction Time Spent Managing PTS Care (In Minutes): 35
[2018-03-14] MEDS: ATORVASTATIN 20 MG TAB PO SCH (21:01)
[2018-03-14] MEDS: MELATONIN 3 MG TABLET PO SCH (21:01)
[2018-03-14] MEDS: MIRTAZAPINE 15 MG TAB PO SCH (21:02)
[2018-03-14] MEDS: DONEPEZIL HCL 5 MG TAB PO SCH (21:02)
[2018-03-15] MEDS: D5W 1,000 ML IV SCH ×4 (03:00→23:14)
[2018-03-15 05:42] LABS: Absolute Lymphocytes (CBC) 1.5 K/uL (0.7-4.9); Absolute Monocytes 0.9 K/uL (0.1-1.3); Absolute Neutrophil 11.8 K/uL (1.8-8.0); Basophils % 0.2 % (0-1.3); Eosinophils % 0.2 % (0-4.4); Hematocrit 37.1 % (36.0-45.0); Lymphocytes % 10.4 % (15.3-44.8); MCH 32.6 pg (27.0-35.0); MCV 96.8 fL (80-100); MPV 9.9 fL (7.6-11.3); Monocytes % 6.3 % (3.3-12.3); RBC Red Blood Cell Count 3.83 M/uL (3.86-4.86)
[2018-03-15 06:00] LABS: Albumin 1.8 g/dL (3.4-5.0); Bilirubin Total 0.6 mg/dL (0.2-1.0); Potassium 3.8 mmol/L (3.5-5.1); Protein, Total 5.5 g/dL (6.4-8.2)
[2018-03-15] MEDS: POLYETHYL GLY 3350 17 GM/DOSE PO SCH (09:00)
[2018-03-15] MEDS: MEMANTINE HCL 10 MG TABLET PO SCH ×2 (09:00→21:00)
[2018-03-15] MEDS: FAMOTIDINE 20 MG TAB PO SCH (09:00)
[2018-03-15] MEDS: CLOPIDOGREL 75 MG TABLET PO SCH (09:00)
[2018-03-15] MEDS: LACTOBACILLUS/ACIDOPHILUS TAB PO SCH (09:00)
[2018-03-15] MEDS: DULOXETINE 30 MG CAP PO SCH (09:00)
[2018-03-15] MEDS: CEFEPIME/SWI 2gm 2 GM/20 ML SYR IVP SCH (09:52)
[2018-03-15] MEDS: ENOXAPARIN 30 MG/0.3 ML SQ SCH (09:52)
--- NOTE | 2018-03-15 12:18 | P.PN ---
Subjective Date of Service: 03/15/18 Subjective: No new changes, No C/O voiced Patient seen and examined at bedside. Daughter at bedside. Chart reviewed and case discussed with nursing staff. NG tube on suction, draining. More sleepy this morning, although arousable. Review of Systems As noted Physical Examination - Vital Signs Temperature: 97.8 F Blood Pressure: 113/66 Pulse: 102 Respirations: 18 Pulse Ox (%): 93 - Physical Exam General: Alert, In no apparent distress, Oriented x3 HEENT: Atraumatic, PERRLA, EOMI Neck: Supple, JVD not distended Respiratory: Clear to auscultation bilaterally, Normal air movement Cardiovascular: Normal S1 S2, Other (Tachycardic) Gastrointestinal: Other (NG tube in place, suction), Tenderness Musculoskeletal: No tenderness Integumentary: No rashes Neurological: Normal speech, Normal tone, Normal affect Lymphatics: No axilla or inguinal lymphadenopathy Assessment And Plan - Plan This is an 82-year-old female with: Mechanical small bowel obstruction Noted on abdominal x-ray, will discontinue tube feeds, keep NPO and turn NG tube on suction. Continue conservative management. Family does not want any surgical intervention at this time. Severe sepsis secondary to urinary tract infection, improving. Continue IV antibiotics. Vancomycin discontinued Urinary tract infection, acute cystitis without hematuria. The patient has history of resistant infections; however, cultures show no growth to date. We will stop vanc. Acute metabolic encephalopathy related to sepsis, hypernatremia, and urinary tract infection, as well as narcotic side effects. The patient's mental status is improving, however, not quite back to baseline. We will continue to monitor. Acute kidney injury, resolved. Creatinine has normalized. Hypernatremia. Resolved Continue D5W as patient is NPO. We will continue to monitor closely. Moderate protein-calorie malnutrition. Albumin is 2.7. Hypophosphatemia. Resolved Hypermagnesemia. Resolved Major depressive disorder, in remission. Alzheimer's dementia, early onset without behavioral disturbance. DVT prophylaxis: Lovenox GI prophylaxis: Pepcid Diet: NPO Disposition: Pending symptomatic improvement. Keep NPO, NG tube and suction. The patient is a resident of [facility], will return there upon discharge, once stable. Family is also considering hospice, meeting has been set up for this afternoon.
--- NOTE | 2018-03-15 15:36 | P.PN ---
Date of Service: 03/15/18 Spoke to patient's 2 daughters regarding further plan of care. This morning, they were interested in speaking to hospice, with had a meeting with hospice. Per daughter's wishes, they do not want to officially do hospice care yet but they would like the NG tube taken out. They think that she has had this obstruction for rare long time and think she is suffering more with the NG tube in place. This is why they would like this removed. Discussed with possibility of worsening symptoms including abdominal pain, obstruction, nausea and vomiting. They would like to see how she does in the next day before deciding whether to go with hospice. Discussed with daughters that patient has a very slim chance to return back to baseline even after NG tube removal. Bandaged and the pros and cons of leaving the NG tube and along with the pros and cons of removing it. They would like to go ahead and remove the tube. 25 mcg fentanyl ordered to be given prior to NG tube removal. Family understands that it is a possibility is symptoms may worsen. They do not want the NG tube placed back or any surgical intervention if she does worsen. Orders for fentanyl an NG tube removal placed.
[2018-03-15] MEDS: FENTANYL CITR 100 MCG/2 ML IV PRN (15:55)
[2018-03-15] MEDS: MELATONIN 3 MG TABLET PO SCH (21:00)
[2018-03-15] MEDS: DONEPEZIL HCL 5 MG TAB PO SCH (21:00)
[2018-03-15] MEDS: ATORVASTATIN 20 MG TAB PO SCH (21:00)
[2018-03-15] MEDS: MIRTAZAPINE 15 MG TAB PO SCH (21:00)
[2018-03-16 07:10] LABS: Absolute Lymphocytes (CBC) 1.3 K/uL (0.7-4.9); Absolute Monocytes 1.4 K/uL (0.1-1.3); Absolute Neutrophil 18.8 K/uL (1.8-8.0); Basophils % 0.1 % (0-1.3); Eosinophils % 0.2 % (0-4.4); Hematocrit 38.1 % (36.0-45.0); MCH 33.3 pg (27.0-35.0); MCV 96.1 fL (80-100); MPV 10.1 fL (7.6-11.3); Monocytes % 6.4 % (3.3-12.3); RBC Red Blood Cell Count 3.96 M/uL (3.86-4.86)
[2018-03-16 07:42] LABS: Albumin 1.7 g/dL (3.4-5.0); Bilirubin Total 0.5 mg/dL (0.2-1.0); Potassium 3.8 mmol/L (3.5-5.1); Protein, Total 5.7 g/dL (6.4-8.2)
[2018-03-16] MEDS: CLOPIDOGREL 75 MG TABLET PO SCH (09:00)
[2018-03-16] MEDS: LACTOBACILLUS/ACIDOPHILUS TAB PO SCH (09:00)
[2018-03-16] MEDS: DULOXETINE 30 MG CAP PO SCH (09:00)
[2018-03-16] MEDS: POLYETHYL GLY 3350 17 GM/DOSE PO SCH (09:00)
[2018-03-16] MEDS: MEMANTINE HCL 10 MG TABLET PO SCH (09:00)
[2018-03-16] MEDS: FAMOTIDINE 20 MG TAB PO SCH (09:00)
[2018-03-16] MEDS: FENTANYL CITR 100 MCG/2 ML IV PRN ×2 (09:02→11:57)
[2018-03-16 09:09] LABS: Blood Morphology Comment NOT SEEN (NOT SEEN); Platelet Estimate ADEQ
--- NOTE | 2018-03-16 10:01 | RAD REPORT ---
EXAM DESCRIPTION: RAD - Chest Single View - 03/16/2018 9:34 am CLINICAL HISTORY: NGT placement Chest pain. COMPARISON: Abdomen 1 View (KUB) dated 03/14/2018; Chest Single View dated 03/13/2018; Chest Single View dated 03/11/2018; Chest Single View dated 03/20/2016 FINDINGS: Portable technique limits examination quality. The tip of the enteric tube is just entering the stomach.
[2018-03-16] MEDS: ENOXAPARIN 30 MG/0.3 ML SQ SCH (11:29)
[2018-03-16] MEDS: CEFEPIME/SWI 2gm 2 GM/20 ML SYR IVP SCH (11:30)
[2018-03-16] MEDS ORDERED: HYDROMORPHONE HCL 1 MG/ML INJ IV PRN (13:22)
[2018-03-16] MEDS ORDERED: HALOPERIDOL LACT 5 MG/ML INJ IV PRN (13:23)
[2018-03-16] MEDS ORDERED: ONDANSETRON 4 MG/2 ML VIAL IV PRN (13:23)
[2018-03-16] MEDS ORDERED: POLYVINYL ALCOHOL 1.4% 15 ML OPTH PRN (13:24)
[2018-03-16] MEDS ORDERED: SCOPOLAMINE HYDROBROMIDE PATCH TD SCH (13:30)
[2018-03-16 13:52] VITALS: O2SAT 96
[2018-03-16] MEDS ORDERED: ATROPINE 1% OPTH DROPS 5ML SL SCH (14:30)
[2018-03-16 14:41] VITALS: BP 84/50; TEMP 97.8
[2018-03-16] MEDS ORDERED: LORazepam 2 MG/ML VIAL IV SCH (15:00)
--- NOTE | 2018-03-16 16:59 | P.DS ---
Admission Date: 03/11/18 Discharge Date: 03/16/18 Disposition: HOSPICE-MEDICAL FACILITY Discharge Condition: SERIOUS Reason for Admission: Sepsis Procedures: 03/13/2018: NG tube placement 03/15/2018: NG tube removal Had discussion regarding for NG tube removal. See progress note 03/24/2018: NG tube placement Brief History of Present Illness: The patient is an 82-year-old female with past medical history of dementia, hypertension, depression, who is a [facility] of [facility], comes in for generalized weakness as well as decreased mental status more than usual. The patient was evaluated in the ER. Her symptoms are constant, moderate, progressively worsening. Upon arrival, her vital signs showed hypotension, blood pressure was 98/67, pulse was 127. She was tachypneic. The patient was given 2 L IV fluid bolus with normal saline. Workup showed elevated white count of 12.7. Her lactate was high at 6.5. Procalcitonin was elevated. UA was positive. The patient was given IV cefepime and referred for admission for sepsis secondary to UTI. The patient was seen in the ER, she was asleep, but arousable. She did receive some Narcan as she is on tramadol at the nursing facility. She did perk up slightly. Her blood pressure improved with IV fluids. Hospital Course: This is an 82-year-old female admitted for severe sepsis, likely secondary to urinary tract infection. IV antibiotics was started, urine cultures were obtained and antibiotics was narrowed and regards to the culture results. Due to patient's encephalopathy along with dysphasia, a barium swallow study was done. It was recommended patient be started on thin liquids without a straw. Decision was made to put an NG tube after discussion of pros and cons. Tube feeds were started. On the chest x-ray, I was noted dilated bowel loops and abdominal x-ray was done. The abdominal x-ray without evidence of a mechanical small-bowel obstruction. Tube feeds were stopped, general surgery was consulted and NG tube was placed to suction. Per family sessions, surgery consult was discontinued as they did not want surgical intervention. Patient' s family was interested in hospice, hospice consultation was placed and family had meeting with hospice. They decided that they did not 100 facially go on hospice, but wanted NG tube removed. After extensive discussion regarding NG tube removal versus clamping the tube versus leaving it in place, family decided that they would like the NG tube removed as the thought that patient had an obstruction for a very long time and the NG tube was causing her more pain than the obstruction itself. Again, the extensive discussion took place regarding affects of removing NG tube and family expressed understanding. The NG tube was removed. Patient condition deteriorated with a lot of back up and a lot of secretions. Family wanted the NG tube placed again to make patient comfortable. Fentanyl was given to patient, NG tube was re-placed. Family decided to go hospice, patient was discharged for inpatient hospice Vital Signs/Physical Exam: Temp Pulse Resp BP Pulse Ox 97.8 F 133 H 18 84/50 L 94 03/16/18 12:00 03/16/18 12:00 03/16/18 12:00 03/16/18 12:00 03/16/18 12:00 General: Moderate distress, Confused, Unresponsive Respiratory: Expiratory wheezes, Inspiratory wheezes Cardiovascular: No edema Gastrointestinal: Tenderness Laboratory Data at Discharge: WBC 21.6 K/uL (4.3-10.9) H* D 03/16/18 06:38 Hgb 13.2 g/dL (12.0-15.0) 03/16/18 06:38 Hct 38.1 % (36.0-45.0) 03/16/18 06:38 Plt Count 311 K/uL (152-406) 03/16/18 06:38 PT 12.3 SECONDS (9.5-12.5) 03/11/18 10:40 INR 1.04 03/11/18 10:40 Sodium 135 mmol/L (136-145) L 03/16/18 06:38 Potassium 3.8 mmol/L (3.5-5.1) 03/16/18 06:38 BUN 41 mg/dL (7-18) H 03/16/18 06:38 Creatinine 1.00 mg/dL (0.55-1.3) 03/16/18 06:38 Glucose 192 mg/dL (74-106) H 03/16/18 06:38 Phosphorus 2.8 mg/dL (2.5-4.9) D 03/14/18 05:26 Magnesium 2.3 mg/dL (1.8-2.4) 03/14/18 05:26 Total Bilirubin 0.5 mg/dL (0.2-1.0) 03/16/18 06:38 AST 55 U/L (15-37) H 03/16/18 06:38 ALT 59 U/L (12-78) 03/16/18 06:38 Alkaline Phosphatase 73 U/L (45-117) 03/16/18 06:38 Lipase 34 U/L (73-393) L 03/11/18 10:40 Home Medications: Acetaminophen [Tylenol*] 650 mg PO Q6HP PRN 03/20/16 Bisacodyl [Dulcolax*] 5 mg PO Q12HP PRN 03/20/16 Cholecalciferol (Vitamin D3) [Vitamin D3] 1,000 unit PO BID 03/20/16 Docusate/Senna [Senokot-S*] 1 tab PO BID 03/20/16 Donepezil HCl [Aricept] 10 mg PO BEDTIME 03/20/16 Ibuprofen [Motrin*] 200 mg PO Q12HP PRN 03/20/16 Meclizine HCl [Antivert*] 25 mg PO Q6HP PRN 03/20/16 Melatonin [Melatonin*] 3 mg PO BEDTIME 03/20/16 Memantine HCl [Namenda*] 10 mg PO BID 03/20/16 Mirabegron [Myrbetriq] 50 mg PO DAILY 03/20/16 Tramadol HCl [Ultram] 50 mg PO Q6HP PRN 03/20/16 Amlodipine Besylate 5 mg PO DAILY 03/11/18 Ascorbic Acid [Vitamin C] 1,000 mg PO DAILY 03/11/18 Ascorbic Acid [Vitamin C] 500 mg PO BEDTIME 03/11/18 Atorvastatin Calcium [Lipitor*] 20 mg PO BEDTIME 03/11/18 Clopidogrel Bisulfate [Plavix*] 75 mg PO DAILY 03/11/18 Diclofen Sod/Kinesiology Tape [Diclo Gel 1%-Xrylix Sheet Kit] 1 lisa TOP Q12H Divalproex ER [Depakote *ER] 125 mg PO BID 03/11/18 Divalproex ER [Depakote *ER] 250 mg PO BID 03/11/18 Duloxetine HCl [Cymbalta] 90 mg PO DAILY 03/11/18 Famotidine [Pepcid*] 20 mg PO DAILY 03/11/18 Lactobacillus Acidophilus [Acidophilus] 1 cap PO DAILY 03/11/18 Loperamide [Imodium*] 2 mg PO Q12HP 03/11/18 Mirtazapine [Remeron*] 15 mg PO BEDTIME 03/11/18 Polyethyl Gly 3350 [Glycolax*] 17 gm PO DAILY 03/11/18 Fentanyl Cit [Sublimaze*] 25 mcg IV Q4H PRN vial 03/16/18 Physician Review: Patient Assessed, Agree with Above Assessment and Plan Time spent managing pt's care (in minutes): 55
== END 2018-03-16 14:20 | disposition hospice, inpatient (51) | DRG 871 ==
LOC: ER 10:11 → 2ND 12:10
PROVIDERS: ADMIT Family Medicine; ATTEND Family Medicine
PROC: 0DH67UZ Insertion of Feeding Device into Stomach, Via Natural or Artificial Opening (ICD-10-PCS; principal; 2018-03-13)
PROC: 3E0G76Z Introduction of Nutritional Substance into Upper GI, Via Natural or Artificial Opening (ICD-10-PCS; 2018-03-13)
PROC: 0D9670Z Drainage of Stomach with Drainage Device, Via Natural or Artificial Opening (ICD-10-PCS; 2018-03-14)
DX: A41.9 Sepsis, unspecified organism (principal); R65.21 Severe sepsis with septic shock; G93.41 Metabolic encephalopathy; N17.9 Acute kidney failure, unspecified; E44.0 Moderate protein-calorie malnutrition; N30.00 Acute cystitis without hematuria; E87.0 Hyperosmolality and hypernatremia; K56.609 Unspecified intestinal obstruction, unspecified as to partial versus complete obstruction; R13.10 Dysphagia, unspecified; Z51.5 Encounter for palliative care; Z66 Do not resuscitate; Z88.5 Allergy status to narcotic agent; Z88.2 Allergy status to sulfonamides; Z88.8 Allergy status to other drugs, medicaments and biological substances; F32.9 Major depressive disorder, single episode, unspecified; E78.5 Hyperlipidemia, unspecified; I10 Essential (primary) hypertension; I95.9 Hypotension, unspecified; G30.0 Alzheimer's disease with early onset; F02.80 Dementia in other diseases classified elsewhere, unspecified severity, without behavioral disturbance, psychotic disturbance, mood disturbance, and anxiety; E83.39 Other disorders of phosphorus metabolism; E83.41 Hypermagnesemia
CPT/HCPCS: 36415; 51702; 70450; 71045; 74018; 74230; 80048; 80053; 80076; 80202; 81003; 81015; 82550; 82962; 83605; 83690; 83735; 84100; 84145; 84295; 84484; 85025; 85610; 87040; 87086; 87088; 92526; 92610; 92611; 93005; 96365; 96375; 97110; 97162; 97165; 97530; 99285; C9113; J0360; J0692; J1170; J1630; J1650; J2310; J3010; J7030

== ENCOUNTER 2018-03-16 14:26 | Inpatient (IN) | payer OTHER ==
[2018-03-16] MEDS ORDERED: ATROPINE 1% OPTH DROPS 5ML OPTH PRN (14:38)
[2018-03-16] MEDS ORDERED: ONDANSETRON 4 MG/2 ML VIAL IV PRN (14:43)
[2018-03-16] MEDS ORDERED: HALOPERIDOL LACT 5 MG/ML INJ IV PRN (14:45)
[2018-03-16] MEDS ORDERED: ATROPINE 1% OPTH DROPS 5ML SL PRN (14:49)
[2018-03-16] MEDS: LORazepam 2 MG/ML VIAL IV SCH ×5 (15:00→23:00)
[2018-03-16] MEDS: HYDROMORPHONE HCL 2 MG/ML inj IV SCH ×5 (15:00→23:00)
--- NOTE | 2018-03-16 17:12 | P.HP ---
Certification for Inpatient Patient admitted to: Inpatient With expected LOS: >2 Midnights Patient will require the following post-hospital care: None Practitioner: I am a practitioner with admitting privileges, knowledge of patient current condition, hospital course, and medical plan of care. Services: Services provided to patient in accordance with Admission requirements found in Title 42 Section 412.3 of the Code of Federal Regulations Patient History Date of Service: 03/16/18 Allergies codeine Allergy (Unknown, Verified 03/19/16 21:11) Anaphylaxis Sulfa (Sulfonamide Antibiotics) Allergy (Unknown, Verified 03/19/16 21:11) Anaphylaxis paroxetine [From Paxil] Allergy (Verified 03/19/16 21:11) Anaphylaxis Home Medications: Acetaminophen [Tylenol*] 650 mg PO Q6HP PRN 03/20/16 Bisacodyl [Dulcolax*] 5 mg PO Q12HP PRN 03/20/16 Cholecalciferol (Vitamin D3) [Vitamin D3] 1,000 unit PO BID 03/20/16 Docusate/Senna [Senokot-S*] 1 tab PO BID 03/20/16 Donepezil HCl [Aricept] 10 mg PO BEDTIME 03/20/16 Ibuprofen [Motrin*] 200 mg PO Q12HP PRN 03/20/16 Meclizine HCl [Antivert*] 25 mg PO Q6HP PRN 03/20/16 Melatonin [Melatonin*] 3 mg PO BEDTIME 03/20/16 Memantine HCl [Namenda*] 10 mg PO BID 03/20/16 Mirabegron [Myrbetriq] 50 mg PO DAILY 03/20/16 Tramadol HCl [Ultram] 50 mg PO Q6HP PRN 03/20/16 Amlodipine Besylate 5 mg PO DAILY 03/11/18 Ascorbic Acid [Vitamin C] 1,000 mg PO DAILY 03/11/18 Ascorbic Acid [Vitamin C] 500 mg PO BEDTIME 03/11/18 Atorvastatin Calcium [Lipitor*] 20 mg PO BEDTIME 03/11/18 Clopidogrel Bisulfate [Plavix*] 75 mg PO DAILY 03/11/18 Diclofen Sod/Kinesiology Tape [Diclo Gel 1%-Xrylix Sheet Kit] 1 lisa TOP Q12H Divalproex ER [Depakote *ER] 125 mg PO BID 03/11/18 Divalproex ER [Depakote *ER] 250 mg PO BID 03/11/18 Duloxetine HCl [Cymbalta] 90 mg PO DAILY 03/11/18 Famotidine [Pepcid*] 20 mg PO DAILY 03/11/18 Lactobacillus Acidophilus [Acidophilus] 1 cap PO DAILY 03/11/18 Loperamide [Imodium*] 2 mg PO Q12HP 03/11/18 Mirtazapine [Remeron*] 15 mg PO BEDTIME 03/11/18 Polyethyl Gly 3350 [Glycolax*] 17 gm PO DAILY 03/11/18 Fentanyl Cit [Sublimaze*] 25 mcg IV Q4H PRN vial 03/16/18 - Past Medical/Surgical History Diabetic: No -: HTN -: UTI -: Depression -: left arm fx -: dementia -: CVA -: Hysterectomy, -: sx on left arm -: cardiac stent - Social History Alcohol use: Yes CD- Drugs: No Caffeine use: Yes Review of Systems 10-point ROS is otherwise unremarkable Physical Examination - Physical Exam General: Demented, Moderate distress, Confused HEENT: Atraumatic Neck: 2+ carotid pulse no bruit Respiratory: Normal air movement, Crackles/rales, Rhonchi/gurgles Cardiovascular: Regular rate/rhythm, Normal S1 S2 Gastrointestinal: Normal bowel sounds, Other (NG tube in place), Tenderness Musculoskeletal: No tenderness Integumentary: No rashes Neurological: Abnormal tone, Abnormal sensation, Abnormal cranial nerve function Lymphatics: No axilla or inguinal lymphadenopathy Assessment and Plan Discharge Plan: Home Plan to discharge in: 48 Hours - Advance Directives Does patient have a Living Will: Yes Does patient have a Durable POA for Healthcare: Yes - Code Status/Comfort Care Code Status Assessed: Yes Critical Care: No
[2018-03-17 00:30] VITALS: BP 49/25; TEMP 98.5
[2018-03-17 00:42] VITALS: O2SAT 99
[2018-03-17] MEDS: LORazepam 2 MG/ML VIAL IV SCH (00:46)
[2018-03-17] MEDS: HYDROMORPHONE HCL 2 MG/ML inj IV SCH (00:47)
[2018-03-19] MEDS ORDERED: SCOPOLAMINE HYDROBROMIDE PATCH TD SCH (09:00)
== END 2018-03-16 22:10 | disposition expired | DRG 871 ==
LOC: 2ND 14:26
PROVIDERS: ADMIT Family Medicine; ATTEND Family Medicine
PROC: 0D9670Z Drainage of Stomach with Drainage Device, Via Natural or Artificial Opening (ICD-10-PCS; principal; 2018-03-16)
DX: A41.9 Sepsis, unspecified organism (principal); G93.41 Metabolic encephalopathy; N39.0 Urinary tract infection, site not specified; Z86.73 Personal history of transient ischemic attack (TIA), and cerebral infarction without residual deficits; F32.9 Major depressive disorder, single episode, unspecified; Z66 Do not resuscitate; I46.9 Cardiac arrest, cause unspecified; F03.90 Unspecified dementia, unspecified severity, without behavioral disturbance, psychotic disturbance, mood disturbance, and anxiety; R65.20 Severe sepsis without septic shock
CPT/HCPCS: J1170